=== PATIENT | female | born 1955 | race Caucasian/White ===

== ENCOUNTER 2018-08-15 10:09 | Emergency (ER) | payer OTHER ==
--- OUTSIDE RECORDS SUMMARY | 2018-08-15 10:11 | XMS REPORT | Clinical Summary ---
:1955 Author Organization [facility] Address [address] [place] [address] Care Team Providers Name Role Phone Adonay Maryann Nahed Primary Care Provider Allergies Active Allergy Reactions Severity Noted Date Comments Morphine Itching 06/30/2014 Oxycodone Oow-[id number]-Vps Itching, Nausea And Vomiting 06/30/2014 Diazepam Itching 06/30/2014 Medications Medication Sig Dispensed Refills Start Date End Date Status traMADol (ULTRAM) 50 mg Take 50 mg by 0 Active tablet mouth every 6 (six) hours as needed for Pain. meloxicam (MOBIC) 15 MG Take 15 mg by 0 Active tablet mouth daily. clonazePAM (KLONOPIN) 0.5 Take 0.5 mg by 0 Active MG tablet mouth 2 (two) times daily as needed for Anxiety. cholecalciferol (VITAMIN Take 1,000 0 Active D3) 1,000 unit tablet Units by mouth daily. ascorbic acid (VITAMIN C) Take 1,000 mg 0 Active 1000 MG tablet by mouth daily. b complex vitamins tablet Take 1 tablet 0 Active by mouth daily. magnesium 30 mg tablet Take 30 mg by 0 Active mouth 2 (two) times daily. multivitamin per tablet Take 1 tablet 0 Active by mouth daily. DULoxetine (CYMBALTA) 60 Take 60 mg by 0 Active MG capsule mouth daily. atenolol (TENORMIN) 25 MG Take 25 mg by 0 Active tablet mouth daily. Missing or Non-Formulary 0 Active Medication estrogens, Take 1 tablet 0 Active conjugated,-methyltestost by mouth daily. erone (ESTRATEST) 1.25-2.5 mg per tablet amoxicillin-clavulanate Take 1 tablet 0 Active (AUGMENTIN) 875-125 mg by mouth 2 per tablet (two) times daily. Active Problems Not on file Social History Tobacco Use Types Packs/Day Years Used Date Never Smoker Alcohol Use Drinks/Week oz/Week Comments Yes 1 Glasses of wine 0.6 Sex Assigned at Date Recorded Not on file Job Start Date Occupation Industry Not on file Not on file Not on file Travel History Travel Start Travel End No recent travel history available. Last Filed Vital Signs Not on file Plan of Treatment Not on file Results Not on fileafter 08/14/2017 Insurance Payer Benefit Plan / Subscriber ID Type Phone Address Group [employer]UE [employer] xxxxxxxxxxxxxxx PPO [phone] [address] SHIELD POS/PPO/[place] [address]
--- OUTSIDE RECORDS SUMMARY | 2018-08-15 10:11 | XMS REPORT | Clinical Summary ---
:1955 Author Organization [facility] Address [address] [place] [address] Care Team Providers Name Role Phone Maryann Urias MD Primary Care Provider Allergies Active Allergy Reactions Severity Noted Date Comments Benzodiazepines 06/28/2015 Ciprofloxacin 06/28/2015 Diazepam 03/03/2014 Morphine Itching 06/30/2014 Nitrofurantoin 06/18/2017 Monohyd/M-Cryst Other PERCODAN. Sulfa (Sulfonamide Hives, Other (See 09/14/2015 Flushing and Antibiotics) Comments), lightheadedness Swelling Medications Medication Sig Dispensed Refills Start Date End Date Status clonIDINE (CATAPRES) TK 1 T PO TID 5 06/01/2017 Active 0.1 MG tablet traMADol (ULTRAM) 50 TK 1 T PO 2 05/03/2017 Active mg tablet TID valACYclovir TK 1 T PO TID 0 05/31/2017 Active (VALTREX) 500 MG tablet DULoxetine TK 2 CS PO D 0 06/13/2017 Active (CYMBALTA) 60 MG FOR 90 DAYS capsule propranolol LA TK 1 C PO D 2 05/19/2017 Active (INDERAL LA) 80 MG 24 hr capsule acetaZOLAMIDE 1 05/31/2017 Active (DIAMOX) 250 MG tablet meloxicam (MOBIC) Take 7.5 mg 0 Active 7.5 mg tablet by mouth 2 (two) times a day. cholecalciferol, Take 2,000 0 Active vitamin D3, (VITAMIN Units by D3) 2,000 unit mouth daily. capsule capsule EPINEPHRINE (EPIPEN Inject as 0 Active INJ) directed. cetirizine (ZyrTEC) Take 10 mg by 0 Active 10 MG tablet mouth daily. ranitidine (ZANTAC) Take 150 mg 0 Active 150 MG tablet by mouth 2 (two) times a day. ARIPiprazole Take 5 mg by 0 Active (ABILIFY) 5 MG mouth daily. tablet dicyclomine (BENTYL) Take 10 mg by 0 Active 10 MG capsule mouth 3 (three) times a day. clonAZEPAM 1 06/17/2017 04/15/2018 Discontinued (KlonoPIN) 1 MG tablet aspirin (ECOTRIN) 81 Take 1 tablet 30 tablet 11 06/18/2017 06/18/2018 MG enteric coated (81 mg total) tablet by mouth daily. LORAZepam (ATIVAN) 2 Take 2 mg on 2 tablet 0 03/08/2018 03/09/2018 MG tablet call to MRI scan. If needed repeat another 2 mg for anxiety. 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 Encounters Date Type Specialty Care Team Description 04/30/2018 Orders Only Neurology Shanta Stoner Clinically isolated syndrome (HCC); MA Frequent falls 04/15/2018 Office Visit Neurology Enio Mars MD Lumbar radiculopathy ( Primary Dx); Clinically isolated syndrome (HCC) 04/13/2018 Orders Only Neurology Shanta Stoner Clinically isolated syndrome (HCC); HOLLIS Frequent falls 04/08/2018 Telephone Neurology Shanta Stoner MA 04/06/2018 Hospital Encounter Radiology Enio Mars MD Clinically isolated syndrome (HCC) 04/05/2018 Telephone Neurology Shanta Stoner MA 03/11/2018 Telephone Neurology Shanta Stoner MA 03/09/2018 Transcribe Orders Neurology Shanta Stoner Clinically isolated MA syndrome (HCC) (Primary Dx) 03/08/2018 Office Visit Neurology Enio Mars MD Clinically isolated syndrome (HCC) (Primary Dx); Frequent falls 02/22/2018 Telephone Neurology Shanta Stoner Clinically isolated MA syndrome (HCC) (Primary Dx) 09/11/2017 Office Visit Neurology Enio Mars MD Clinically isolated syndrome (Primary Dx) 09/02/2017 Orders Only Neurology Shanta Stoner Clinically isolated MA syndrome after 08/14/2017 Family History Medical History Relation Name Comments Heart disease Brother Alzheimer's disease Father Diabetes Father Hypertension Father Esophageal cancer Maternal Aunt Lung cancer Maternal Aunt Uterine cancer Maternal Grandmother Lung cancer Mother Melanoma Sister Migraines Sister Relation Name Status Comments Brother Father Maternal Aunt Maternal Grandmother Mother Sister Social History Tobacco Use Types Packs/Day Years Used Date Never Smoker Smokeless Tobacco: Never Used Alcohol Use Drinks/Week oz/Week Comments Yes occl Sex Assigned at Date Recorded Not on file Job Start Date Occupation Industry Not on file Not on file Not on file Travel History Travel Start Travel End No recent travel history available. Last Filed Vital Signs Vital Sign Reading Time Taken Blood Pressure 100/70 04/15/2018 2:13 PM [employer] Pulse 70 04/15/2018 2:13 PM [employer] Temperature 36.9 C (98.4 F) 04/06/2018 10:56 AM [employer] Respiratory Rate 14 04/15/2018 2:13 PM [employer] Oxygen Saturation 95% 04/06/2018 2:15 PM [employer] Inhaled Oxygen Concentration - - Weight - - Height - - Body Mass Index - - Plan of Treatment Health Maintenance Due Date Last Done Comments CERVICAL CANCER SCREENING 1978 BREAST CANCER SCREENING 11/09/2007 COLON CANCER SCREENING 11/09/2007 SHINGLES VACCINES (#1) 11/09/2007 INFLUENZA VACCINE 11/25/2018 03/24/2016, 03/24/2016, 03/16/2015, Additional history exists Procedures Procedure Name Priority Date/Time Associated Comments Diagnosis IR LUMBAR PUNCTURE Routine 04/06/2018 12:25 Clinically isolated Results for this PM [employer] syndrome (HCC) procedure are in the results section. CSF CELL COUNT WITH Routine 04/06/2018 12:10 Clinically isolated Results for this DIFFERENTIAL PM [employer] syndrome (HCC) procedure are in the results section. PROTEIN, CSF Routine 04/06/2018 12:10 Clinically isolated Results for this PM [employer] syndrome (HCC) procedure are in the results section. GLUCOSE LEVEL, CSF Routine 04/06/2018 12:10 Clinically isolated Results for this PM [employer] syndrome (HCC) procedure are in the results section. IGG SYNTHESIS RATE Routine 04/06/2018 12:10 Clinically isolated Results for this STUDY PM [employer] syndrome (HCC) procedure are in the results section. OLIGOCLONAL BANDING, Routine 04/06/2018 12:10 Clinically isolated Results for this CSF PM [employer] syndrome (HCC) procedure are in the results section. GRAM STAIN Routine 04/06/2018 12:10 Results for this PM [employer] procedure are in the results section. CSF CULTURE Routine 04/06/2018 12:10 Clinically isolated Results for this PM [employer] syndrome (HCC) procedure are in the results section. FUNGUS CULTURE Routine 04/06/2018 12:10 Clinically isolated Results for this PM [employer] syndrome (HCC) procedure are in the results section. AFB CULTURE Routine 04/06/2018 12:10 Clinically isolated Results for this PM [employer] syndrome (HCC) procedure are in the results section. CRYPTOCOCCAL ANTIGEN Routine 04/06/2018 12:10 Clinically isolated Results for this SCREEN PM [employer] syndrome (HCC) procedure are in the results section. after 08/14/2017 Results IR Lumbar Puncture by Radiology (04/06/2018 12:25 PM [employer]) Narrative Performed At EXAMINATION:IR LUMBAR PUNCTURE [facility] CLINICAL HISTORY:G37.9 Demyelinating disease of central nervous systemunspecified, clinically isolated syndrome COMPARISON:None. Findings: Informed consent was obtained. Lower back was prepped and draped in usual sterile fashion. 1% lidocaine was used for local anesthesia. A 25-gauge 5 inch needle was advanced into spinal canal at the L2-3 level under intermittent fluoroscopic guidance. 12 cc of clear CSF fluid was withdrawn. No complications. Total fluoroscopic time was less than 1 minute. Total air kerma was 149 mGy. IMPRESSION: Successful fluoroscopic guided lumbar puncture. [facility]-[id number] Procedure Note Hm Interface, Radiology Results Incoming - 04/06/2018 4:39 PM [employer] EXAMINATION: IR LUMBAR PUNCTURE CLINICAL HISTORY: G37.9 Demyelinating disease of central nervous system unspecified, clinically isolated syndrome COMPARISON: None. Findings: Informed consent was obtained. Lower back was prepped and draped in usual sterile fashion. 1% lidocaine was used for local anesthesia. A 25-gauge 5 inch needle was advanced into spinal canal at the L2-3 level under intermittent fluoroscopic guidance. 12 cc of clear CSF fluid was withdrawn. No complications. Total fluoroscopic time was less than 1 minute. Total air kerma was 149 mGy. IMPRESSION: Successful fluoroscopic guided lumbar puncture. [facility]-[id number] Performing Organization Address City/State/Zipcode Phone Number [facility] [address] [place] [address] IgG synthesis rate study (04/06/2018 12:10 PM [employer]) IgG albumin ratio, CSF 0.04 0.00 - 0.23 [facility] IgG index, CSF 0.28 0.01 - 0.63 [facility] IgG synthetic rate -2.69 -9.90 - 3.30 mg/day [facility] Q-albumin ratio, CSF 4.84 2.40 - 8.10 [facility] IgG, CSF 0.82 (L) 1.00 - 3.00 mg/dL [facility] Albumin, CSF 19.34 10.00 - 30.00 mg/dL [facility] IgG 615 (L) 700 - 1,600 mg/dL [facility] Albumin, S 4,000.0 3,640.0 - 5,304.0 mg/dL [facility] Specimen Serum Performing Organization Address City/[facility] Phone Number [facility] DEPARTMENT OF PATHOLOGY AND [address] [place] [id number] [place] [phone] AFB culture (04/06/2018 12:10 PM [employer]) AFB culture isolate No growth after 6 weeks of incubation. [facility] Comment: Specimen Information Specimen Source: CSF (Spinal Fluid) Specimen Site: Lumbar puncture Specimen Cerebrospinal fluid - Lumbar puncture Performing Organization Address [facility] Phone Number [facility] DEPARTMENT OF PATHOLOGY AND [address] [place] [address] Cryptococcal antigen, screen (04/06/2018 12:10 PM [employer]) Cryptococcal Ag Negative - No Cryptococcus antigen detected. [facility] Comment: Specimen Information Specimen Source: CSF (Spinal Fluid) Specimen Site: Lumbar puncture Specimen Cerebrospinal fluid - Lumbar puncture Performing Organization Address City/[facility] Phone Number [facility] DEPARTMENT OF PATHOLOGY AND [address] [place] [phone] [place] [phone] Oligoclonal banding, CSF (04/06/2018 12:10 PM [employer]) Protein, CSF 30 15 - 45 mg/dL [facility] Prealbumin, CSF 4.6 3.5 - 11.1 % [facility] Albumin, CSF 64.8 40.8 - 66.2 % [facility] Alpha 1, CSF 2.7 2.3 - 6.4 % [facility] Alpha 2, CSF 7.3 6.1 - 12.6 % [facility] Beta, CSF 15.2 11.7 - 24.1 % [facility] Gamma, CSF 5.4 (L) 5.6 - 12.2 % [facility] CSF extended interpretation See CommentComment: An [facility] normal CSF [facility] protein study. No oligoclonal bands seen. CSF interpretation See CommentComment: [facility] Mc Bird, PhD; [facility] Nino Gray, PhD; Dre Hartman MD, PhD Specimen Cerebrospinal fluid Performing Organization Address City/[facility] Phone Number [facility] DEPARTMENT OF PATHOLOGY AND [address] [place] [address] Gram stain (04/06/2018 12:10 PM [employer]) Gram stain isolate Few WBC's [facility] No organisms seen Comment: Specimen Information Specimen Source: CSF (Spinal Fluid) Specimen Site: Lumbar puncture Specimen Cerebrospinal fluid - Lumbar puncture Performing Organization Address [facility] Phone Number [facility] DEPARTMENT OF PATHOLOGY AND [address] [place] [phone] [address] CSF culture (04/06/2018 12:10 PM [employer]) CSF culture isolate No growth after 3 days. [facility] Comment: Specimen Information Specimen Source: CSF (Spinal Fluid) Specimen Site: Lumbar puncture Specimen Cerebrospinal fluid - Lumbar puncture Performing Organization Address City/[facility] Phone Number [facility] DEPARTMENT OF PATHOLOGY AND [address] [place], [place] [phone] [address] [address] Fungus culture (04/06/2018 12:10 PM [employer]) Fungus culture isolate No growth after 4 weeks of incubation. [facility] Comment: HOSPITAL Specimen Information Specimen Source: CSF (Spinal Fluid) Specimen Site: Lumbar puncture Specimen Cerebrospinal fluid - Lumbar puncture Performing Organization Address City/[facility] Phone Number [facility] DEPARTMENT OF PATHOLOGY AND [address] [place] [phone] [address] CSF cell count with differential (04/06/2018 12:10 PM [employer]) Color, CSF Chauncey (A) [facility] Appearance, CSF Slightly hazy [facility] CSF supernatant Colorless [facility] RBC, CSF 633 (H) 0 - 1 /CMM [facility] WBC, CSF 3 0 - 5 /CMM [facility] CSF mononuclear cell FootnoteComment: WBC<5,NO [facility] TO PERFORM MANUAL WBC [facility] DIFFERENTIAL. Specimen Cerebrospinal fluid Performing Organization Address City/State/Zipcode Phone Number [facility] DEPARTMENT OF PATHOLOGY [phone] [place] [address] Protein, CSF (04/06/2018 12:10 PM [employer]) Protein, CSF 32 15 - 45 mg/dL [facility] Specimen Cerebrospinal fluid Performing Organization Address City/[facility]/Zipcode Phone Number [facility] DEPARTMENT OF PATHOLOGY [phone] [place] [address] AND [facility] [phone] [place] [address]. [address] Glucose level, CSF (04/06/2018 12:10 PM [employer]) Glucose, CSF 87 (H) 40 - 70 mg/dL [facility] Specimen Cerebrospinal fluid Performing Organization Address City/State/Zipcode Phone Number [facility] DEPARTMENT OF PATHOLOGY [phone] [place] [address] [place] [address] HOSPITAL after 08/14/2017 Insurance Payer Benefit Plan / Group Subscriber ID Type Phone Address [facility] CHOICE/CHOICE + xxxxxxxxx HMO/PPO Advance Directives Patient has advance care planning documents on file. For more information, please contact:[facility] [address] [place] [address]
--- OUTSIDE RECORDS SUMMARY | 2018-08-15 10:11 | XMS REPORT | Continuity of Care Document ---
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5 Solution mg/3 mL (0.083 %) solution for nebulization inhale 3mL over 20 minutes by nebulizer route Clonazepam 1 MG clonazepam 1 mg Active [facility] Oral Tablet tablet TK 1 T PO D Clonidine clonidine HCl Active [facility] Hydrochloride 0.1 mg tablet 0.1 MG Oral TK 1 T PO TID Tablet Dicyclomine dicyclomine 10 Active [facility] Hydrochloride mg capsule TK 1 10 MG Oral C PO TID Capsule duloxetine 60 duloxetine 60 Active [facility] MG Delayed mg Release Oral capsule,delayed Capsule release TK 2 CS PO D FOR 90 DAYS [id number] 0.3 EpiPen 2-Robin Active [facility] ML Epinephrine 0.3 mg/0.3 mL 1 MG/ML injection, Auto-Injector auto-injector [Epipen] USE UTD Lidocaine 0.05 lidocaine 5 % Active [facility] MG/MG Medicated topical patch Patch CHANG 1 PATCH TOPICALLY AND LEAVE ON FOR 12 H THEN LEAVE OFF FOR 12 H meloxicam 7.5 meloxicam 7.5 Active [facility] MG Oral Tablet mg tablet TK 1 T PO BID Estrogens, Premarin 0.625 Active [facility] Conjugated mg/gram vaginal (CUSTODIAL) 0.625 cream APPLY MG/ML Vaginal WITH FINGER TIP Cream TO VAGINAL [Premarin] OPENING TWICE A WEEK UTD 200 ACTUAT ProAir HFA 90 Active [facility] Albuterol 0.09 mcg/actuation MG/ACTUAT aerosol inhaler Metered Dose Inhale 2 puffs Inhaler every 4 hours [ProAir] by inhalation route as needed. 24 HR propranolol ER Active [facility] Propranolol 80 mg Hydrochloride capsule,24 80 MG Extended hr,extended Release Oral release TK 1 C Capsule PO D benzonatate 100 Tessalon Perles Active [facility] MG Oral Capsule 100 mg capsule [Tessalon Take 1-2 Perles] capsules 3 TIMES A DAY by oral route as needed for cough tramadol tramadol 50 mg Active [facility] hydrochloride tablet TK 1 T 50 MG Oral PO TID Tablet valacyclovir valacyclovir Active [facility] 500 MG Oral 500 mg tablet Tablet TK 1 T PO TID 200 ACTUAT albuterol Active [facility] Albuterol 0.09 sulfate HFA 90 MG/ACTUAT mcg/actuation Metered Dose aerosol inhaler Inhaler Inhale 2 puff(s) every 4 hours by inhalation route as needed for 14 days. Atenolol 25 MG atenolol 25 mg Active [facility] Oral Tablet tablet Amoxicillin 875 Augmentin 875 Active [facility] MG / mg-125 mg Clavulanate 125 tablet Take 1 MG Oral Tablet tablet(s) every [Augmentin] 12 hours by oral route with meals for 7 days. Polymyxin B Polytrim 10,000 Active [facility] 39041 UNT/ML / unit-1 mg/mL Trimethoprim 1 eye drops MG/ML INSTILL 1 DROP Ophthalmic INTO both Solution EYE(S) BY [Polytrim] OPHTHALMIC ROUTE EVERY 6 HOURS x 7 days Allergies, Adverse Reactions, Alerts Substance Category Reaction Severity Reaction Status Date Comments Source type Reported Cipro Allergy to [facility] substance 6 Morphine Itching Allergy to [facility] substance 6 Nitrofurantoi Hives Allergy to [facility] n substance 6 Percodan Vomiting Allergy to [facility] substance 6 Sulfa Other Allergy to [facility] (Sulfonamide substance 6 Antibiotics) Valium Allergy to [facility] substance 6 Corticosteroi Allergy to [facility] ds substance 6 (Glucocortico ids) Immunizations Immunization Date Given Site Status Last Updated Comments Source Results Order Results Value Reference Date Interpretation Comments Source Name Range Vital Signs Vital Sign Value Date Comments Source Diastolic (mm Hg) 65 02/17/2017 [facility] Height 65 02/17/2017 [facility] Systolic (mm Hg) 115 02/17/2017 [facility] Weight 232 02/17/2017 [facility] Diastolic (mm Hg) 70 10/11/2015 [facility] Height 65 10/11/2015 [facility] Systolic (mm Hg) 118 10/11/2015 [facility] Weight 225 10/11/2015 [facility] Encounters Location Location Encounter Encounter Reason Attending ADM DC Status Source Details Type Number For Provider Date Date Visit [place] - Diane [id number] Diane 10/10 [facility] Percy [id number] Percy /2015 - [employer]: 9710 [id number] [id number] [facility]/[address] [address] , Ph. [place] - Marya [id number] Marya 02/17 [facility] [id number] Long - PA-C: 9710 [id number] [place] [id number] [facility]/[address] [address] , Ph. Procedures Procedure Code Date Perfomer Comments Source Cholecystectomy [facility] Hysterectomy [facility] Tonsillectomy [facility]
--- OUTSIDE RECORDS SUMMARY | 2018-08-15 10:12 | XMS REPORT | Encounter Summary ---
:1955 Author Reason for Visit Medical Complaint; fever, body aches, sore throat, cough, ear pain, problem w/ swollen eyes x 7 days Instructions 1. Acute sinusitis Augmentin 875 mg-125 mg tablet 2. Bronchitis albuterol sulfate HFA 90 mcg/actuation aerosol inhaler 3. Conjunctivitis Polytrim 10,000 unit-1 mg/mL eye drops Discussion Note: None recorded.Patient educational handouts: No information available. Plan of Care Reminders Provider Appointments None recorded. Lab None recorded. Referral None recorded. Procedures None recorded. Surgeries None recorded. Imaging None recorded. Medications Name Start Date albuterol sulfate HFA 90 mcg/actuation aerosol inhaler Inhale 2 puff(s) every 4 hours by inhalation route as needed for 14 days. atenolol 25 mg tablet Augmentin 875 mg-125 mg tablet Take 1 tablet(s) every 12 hours by oral route with meals for 7 days. clonazepam 1 mg tablet clonidine HCl 0.1 mg tablet duloxetine 60 mg capsule,delayed release lidocaine 5 % topical patch meloxicam 7.5 mg tablet Polytrim 10,000 unit-1 mg/mL eye drops INSTILL 1 DROP INTO both EYE(S) BY OPHTHALMIC ROUTE EVERY 6 HOURS x 7 days Premarin 0.625 mg/gram vaginal cream APPLY WITH FINGER TIP TO VAGINAL OPENING TWICE A WEEK UTD tramadol 50 mg tablet Medications Administered None recorded. Vitals Height Weight BMI Blood Pressure 5 ft 5 in 225 lbs 37.4 118/70 Lab Results None recorded. Allergies Name Reaction Severity Onset Cipro Corticosteroids (Glucocorticoids) Morphine Itching Nitrofurantoin Hives Percodan Vomiting Sulfa (Sulfonamide Antibiotics) Other Valium Problems Name Status Onset Date Source Conjunctivitis Active Encounter Acute Sinusitis Active Encounter Bronchitis Active Encounter Procedures Date Name Performed by Cholecystectomy Information not available Hysterectomy Information not available Tonsillectomy Information not available Vaccine List None recorded. Social History Smoking Status Never Smoker Past Encounters 10/11/2015 Acute Sinusitis; Bronchitis; Conjunctivitis DENNYS Headley: [address] [place] [address], Ph. [phone] History of Present Illness Thuud-Ifcbqwkzhs-Rueqpru Reported By: Patient HPI: Location: head/sinuses, throat, chest. Quality: productive cough, sore throat, colored phlegm, nasal/sinus congestion. Duration: 7days. Severity: moderate. Onset/Timing: gradual. Context: no foreign travel, non-smoker, sick contact, allergies. Modifying factors: OTC medication. Associated Symptoms: no change in number of pillows needed to sleep at night, no sweats, no significant weight gain, no significant weight loss, no morning cough, no vomiting, no diarrhea, no rash, green sputum, shortness of breath, wheezing, fatigue, sweats, sore throat, nausea Review of Systems Basic Reported By: Patient Constitutional: Constitutional: fever Eyes: Eyes: ; bilateral eye redness, matted/crusted AM drainage, mucus/watery discharge Jpsr-Nmgi-Nvord-Throat: Ears: ear pain. Nose: nose/sinus problems. Mouth/ Throat: no bleeding gums, no mouth complaints, no teeth problems, sore throat Cardiovascular: Cardiovascular: no chest pain, no known heart murmur Respiratory: Respiratory: cough, wheezing, shortness of breath Gastrointestinal: Gastrointestinal: no abdominal pain, no vomiting / diarrhea Genitourinary: Genitourinary: no urinary complaints, no discharge Musculoskeletal: Musculoskeletal: no muscle weakness, no arthralgias/joint pain, no back pain, muscle aches Skin: Skin: no abnormal / changing mole, no jaundice, no rashes Neurologic: Neurologic: no loss of consciousness, no weakness, no numbness, no seizures, dizziness, headache Physical Exam Adult Basic, Adult Female Complete Constitutional: General Appearance: healthy-appearing, well-nourished, well-developed. Level of Distress: NAD. Ambulation: ambulating normally Psychiatric: Mental Status: active and alert. Orientation: to time, to place, to person Eyes: Lids and Conjunctivae: no pallor, injected, discharge. Pupils: PERRLA. Sclerae: injected Apj-Gsbw-Bykvh-Throat: Ears: no lesions on external ear, no outer ear tenderness, EACs clear, TMs clear. Hearing: no hearing loss. Nose: no lesions on external nose, no septal deviation, nasal passages clear, no nasal discharge, sinus tenderness; turbinates swollen. Lips, Teeth, and Gums: no mouth or lip ulcers, no bleeding gums, normal dentition. Oropharynx: moist mucous membranes, no erythema, no exudates, tonsils not enlarged Neck: Lymph Nodes: anterior cervical LAD Lungs: Respiratory effort: no dyspnea, no tachypnea, no use of accessory muscles. Auscultation: breath sounds normal Cardiovascular: Heart Auscultation: RRR Neurologic: Gait and Station: normal gait
--- OUTSIDE RECORDS SUMMARY | 2018-08-15 10:12 | XMS REPORT ---
:1955 [facility] Address [address] [place] [address] [place] [id number] Care Team Providers Name Role Phone DR LOUIS MALIK Unavailable Unavailable DIAMOND ELY Unavailable Unavailable Problems This patient has no known problems. Allergies, Adverse Reactions, Alerts This patient has no known allergies or adverse reactions. Medications This patient has no known medications. Encounters Start End Encounter Admission Attending Care Care Encounter Date/Time Date/Time Type Type Clinicians Facility Department ID 2017-10-22 2017-10-22 Outpatient Destinee MALIK Destinee [facility] [id number] 07:07:00 11:00:00 [facility] 2017-09-29 2017-09-29 Outpatient C HELENA Destinee RAD [id number] 09:46:00 23:59:00 [facility] Results Test Description Test Time Test Comments Text Results Atomic Results Result Comments MRI LOW EXT JOINT W/O 2017-09-29 13:00:16 Site ID: [id number] left knee without IV CONTRAST*HSE* contrastHISTORY: M25.562COMPARISON: NoneTECHNIQUE: Multiplanar, multisequence MRI of the left knee was performedwithout contrast.FINDINGS: Menisci: Nondisplaced horizontal tear extends to the free margin of theresidual posterior horn medial meniscus, there is significant truncationthroughout the free margin of the body and posterior horn medial meniscus, withperipheral extrusion of the body segment. Nondisplaced oblique horizontalundersurface tear involves the posterior horn lateral meniscus.Cruciate ligaments: Intact. Collateral ligaments: The medial and lateral collateral ligament complexes areintact.Osseous structures and articular cartilage: No fracture or marrow replacinglesion. Full-thickness medial compartment chondromalacia, with subchondralremodeling and marginal osteophytosis.Patellofemoral joint: Steep lateral trochlear facet with minimal static lateralpatellar tilt and resultant grade II/III chondromalacia throughout the lateralpatellofemoral articulation. No retinacular tear demonstrated. Extensormechanism is normal.Miscellaneous: Small joint effusion, with mild synovitis. No loose bodydemonstrated. Popliteus tendon appears intact. No muscle edema or atrophy.IMPRESSION:1. Prominent free margin truncation throughout the body and posterior hornmedial meniscus with peripheral extrusion of the body segment. Nondisplacedhorizontal tear of the residual posterior horn.2. Moderate medial compartment osteoarthritis/osteophytosis.3. Small nondisplaced oblique horizontal undersurface tear posterior hornlateral meniscus. Mild lateral compartment osteophytosis.4. 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 Small joint effusion. MRI LOW EXT JOINT W/O 2017-09-29 12:52:08 Site ID: [id number] right knee without IV CONTRAST*HSE* contrastHISTORY: M25.561COMPARISON: NoneTECHNIQUE: Multiplanar, multisequence MRI of the right knee was performedwithout contrast.FINDINGS: Menisci: Potentially, there is been prior free margin debridement throughoutthe posterior horn medial meniscus, which appears diffusely attenuated. Mildresidual free margin irregularity is present. Lateral meniscus appears normal.Cruciate ligaments: Intact. Collateral ligaments: The medial and lateral collateral ligament complexes areintact.Osseous structures and articular cartilage: No fracture or marrow replacinglesion. Full-thickness medial compartment chondromalacia, with subchondralremodeling and marginal osteophytosis.Patellofemoral joint: Steep lateral trochlear facet with minimal static lateralpatellar tilt and mild patellofemoral chondromalacia. No retinacular teardemonstrated. Extensor mechanism is normal.Miscellaneous: Small joint effusion, with mild synovitis and thin poplitealcyst. No loose body demonstrated. Popliteus tendon appears intact. No muscleedema or atrophy.IMPRESSION:1. Probable previous free margin debridement of the posterior horn medialmeniscus, with mild residual free margin irregularity.2. Fairly isolated moderate medial compartment osteoarthritis/osteophytosis.3. Small joint effusion. B-TYPE NATRIURETIC FACTOR (BNP) 2016-07-07 14:13:00 Test Item Value Reference Range Comments B-TYPE NATRIURETIC PEPTIDE (BEAKER) (test fclq=256) 30 pg/mL 0-100
--- OUTSIDE RECORDS SUMMARY | 2018-08-15 10:12 | XMS REPORT | Encounter Summary ---
:1955 Author Reason for Visit Medical Complaint Instructions 1. Costal chondritis costochondritis: care instructions albuterol sulfate 2.5 mg/3 mL (0.083 %) solution for nebulization Tessalon Perles 100 mg capsule ProAir HFA 90 mcg/actuation aerosol inhaler 2. Cough cough: care instructions 3. Wheezing symptom wheezing or bronchoconstriction: care instructions Discussion Note take charge of your health provided to pt with education and questions answered Plan of Care Patient Instructions FU with PCP if symptoms worsening or not improving. Reminders Provider Appointments None recorded. Lab None recorded. Referral None recorded. Procedures None recorded. Surgeries None recorded. Imaging None recorded. Medications Name Start Date acetazolamide 250 mg tablet TK 1 T PO QD albuterol sulfate 2.5 mg/3 mL (0.083 %) solution for nebulization inhale 3mL over 20 minutes by nebulizer route clonazepam 1 mg tablet TK 1 T PO D clonidine HCl 0.1 mg tablet TK 1 T PO TID dicyclomine 10 mg capsule TK 1 C PO TID duloxetine 60 mg capsule,delayed release TK 2 CS PO D FOR 90 DAYS EpiPen 2-Robin 0.3 mg/0.3 mL injection, auto-injector USE UTD lidocaine 5 % topical patch CHANG 1 PATCH TOPICALLY AND LEAVE ON FOR 12 H THEN LEAVE OFF FOR 12 H meloxicam 7.5 mg tablet TK 1 T PO BID Premarin 0.625 mg/gram vaginal cream APPLY WITH FINGER TIP TO VAGINAL OPENING TWICE A WEEK UTD ProAir HFA 90 mcg/actuation aerosol inhaler Inhale 2 puffs every 4 hours by inhalation route as needed. propranolol ER 80 mg capsule,24 hr,extended release TK 1 C PO D Tessalon Perles 100 mg capsule Take 1-2 capsules 3 TIMES A DAY by oral route as needed for cough tramadol 50 mg tablet TK 1 T PO TID valacyclovir 500 mg tablet TK 1 T PO TID Medications Administered Name Date albuterol sulfate 2.5 mg/3 mL (0.083 %) solution for nebulization 2017 -10-24T16:20:29 inhale 3mL over 20 minutes by nebulizer route Vitals Height Weight BMI Blood Pressure 5 ft 5 in 232 lbs 38.6 kg/m2 115/65 mm[Hg] Lab Results None recorded. Allergies Code Code System Name Reaction Severity Status Onset 20340927 RxNorm Cipro Active Corticosteroids Active (Glucocorticoids) 7052 RxNorm Morphine Itching Active 7454 RxNorm Nitrofurantoin Hives Active 273497 RxNorm Percodan Vomiting Active Sulfa (Sulfonamide Other Active Antibiotics) 20231027 RxNorm Valium Active Problems Name Status Onset Date Source Conjunctivitis Active Encounter Acute Sinusitis Active Encounter Bronchitis Active Encounter Procedures Date Name Performed by Cholecystectomy Information not available Hysterectomy Information not available Tonsillectomy Information not available Vaccine List None recorded. Social History Smoking Status Never Smoker Past Encounters 02/17/2017 Costal Chondritis; Cough; Wheezing Symptom DESHAWN McintoshC: [address] [place] [address], Ph. History of Present Illness Wheezing / Cough Reported By: Patient HPI: Location: chest. Quality: dyspnea, tightness, wheezy cough, wheezing. Severity: worsening. Duration: symptoms lasting over 2 weeks. Context: no foreign travel, non-smoker, sick contact, worse at night, allergies, hx of asthma; sleep apnea with no treatment. Modifying factors: OTC medication. Associated Symptoms: no fever, no chills, no sweats, no edema, no heartburn, no sputum production, no shortness of breath, no significant weight gain, no significant weight loss, no morning cough, no post nasal drip, no nausea, no vomiting, no diarrhea, no rash, no muscle aches, no headache, chest pain, wheezing, sore throat Review of Systems Basic Reported By: Patient Constitutional: Constitutional: no fever Eyes: Eyes: no eye complaints Qibb-Jotl-Idpif-Throat: Ears: no ear complaints. Nose: no nose/sinus problems. Mouth/Throat: no bleeding gums, no mouth complaints, no teeth problems, sore throat Cardiovascular: Cardiovascular: no chest pain, no shortness of breath, no known heart murmur Respiratory: Respiratory: cough, wheezing, shortness of breath Musculoskeletal: Musculoskeletal: no muscle weakness, no arthralgias/joint pain, no back pain, muscle aches Neurologic: Neurologic: no loss of consciousness, no weakness, no numbness, no seizures, no dizziness, no headaches, headache Physical Exam Adult Basic Reported By: Patient Constitutional: General Appearance: healthy-appearing, well-nourished, well-developed. Level of Distress: NAD. Ambulation: ambulating normally Psychiatric: Mental Status: active and alert. Orientation: to time, to place, to person Xvy-Qnzd-Sntjs-Throat: Ears: no lesions on external ear, no outer ear tenderness, EACs clear, TMs clear. Hearing: no hearing loss. Nose: no lesions on external nose, nares patent, no septal deviation, nasal passages clear, no sinus tenderness, no nasal discharge. Lips, Teeth, and Gums: no mouth or lip ulcers, no bleeding gums, normal dentition. Oropharynx: moist mucous membranes, no erythema, no exudates, tonsils not enlarged Neck: Neck: supple, trachea midline, no masses, FROM. Lymph Nodes: no cervical LAD, no supraclavicular LAD Lungs: Respiratory effort: no dyspnea, no tachypnea, no use of accessory muscles, no intercostal retractions; very shallowing breathing on exam with coughing. Auscultation: breath sounds normal Cardiovascular: Heart Auscultation: RRR, no murmurs
[2018-08-15] MEDS ORDERED: HYDROCODONE/APAP 10/325 TAB ONE (11:11)
[2018-08-15] MEDS ORDERED: KETOROLAC 30 MG/ML INJ ONE (11:11)
--- NOTE | 2018-08-15 11:30 | ER ---
Nurse's Notes [facility] Name: Ale Patel Age: 62 yrs Sex: Female : 1955 Arrival Date: 08/15/2018 Time: 10:12 Bed 6 Private MD: Diagnosis: Fall due to bumping against object;Contusion of left hip;Contusion of hip;Urinary tract infection, site not specified Presentation: 08/15 10:26 Presenting complaint: Patient states: tripped and fell going up about 4 stairs, denies sv LOC, c/o buttock pain, left hip and LLE pain. Care prior to arrival: None. 10:26 Method Of Arrival: Wheelchair sv 10:26 Acuity: [facility] 3 sv 10:27 Transition of care: patient was not received from another setting of care. Onset of sv symptoms was August 15, 2018 at 06:00. 12:21 Initial Sepsis Screen: Does the patient meet any 2 criteria? No. Patient's initial aj1 sepsis screen is negative. Does the patient have a suspected source of infection? No. Patient's initial sepsis screen is negative. 12:22 Risk Assessment: Do you want to hurt yourself or someone else? Patient reports no aj1 desire to harm self or others. Trauma Activation: Not Applicable Physician: ED Physician; Name: ; Notified At: ; Arrived At: Physician: General Surgeon; Name: ; Notified At: ; Arrived At: Physician: Radiology; Name: ; Notified At: ; Arrived At: Physician: Respiratory; Name: ; Notified At: ; Arrived At: Physician: Lab; Name: ; Notified At: ; Arrived At: Historical: - Allergies: 10:29 Percodan; sv 10:29 BENZODIAZEPINES; sv 10:29 Morphine; sv - PMHx: 10:29 postural tachycardia; Carolina Mera; Ehler's danlos syndrome; IBS; psoriatic arthritis; sv spondylosis; - Immunization history:: Adult Immunizations up to date. - Family history:: not pertinent. - Ebola Screening: : No symptoms or risks identified at this time. Screenin:37 Abuse screen: Denies threats or abuse. Denies injuries from another. Nutritional aj1 screening: No deficits noted. Tuberculosis screening: No symptoms or risk factors identified. 12:22 Fall Risk Fall in past 12 months (25 points). Secondary diagnosis (15 points) impaired aj1 mobility, No IV (0 pts). Ambulatory Aid- Crutches/Cane/Walker (15 pts). Gait- Impaired (20 pts.). Mental Status- Oriented to own ability (0 pts). Total Chavez Fall Scale indicates High Risk Score (45 or more points). Family Present and informed to notify staff if the need to leave the bedside. Assessment: 10:37 General: Appears in no apparent distress. uncomfortable, Behavior is calm, cooperative, aj1 appropriate for age. Pain: Complains of pain in left hip and left gluteus salty and left lower back Pain radiates to left leg. Neuro: Level of Consciousness is awake, alert, obeys commands, Oriented to person, place, time, situation. Cardiovascular: Patient's skin is warm and dry. Respiratory: Airway is patent Respiratory effort is even, unlabored, Respiratory pattern is regular, symmetrical. GI: No signs and/or symptoms were reported involving the gastrointestinal system. : No signs and/or symptoms were reported regarding the genitourinary system. EENT: No signs and/or symptoms were reported regarding the EENT system. Derm: No signs and/or symptoms reported regarding the dermatologic system. Skin is pink, warm \T\ dry. normal. Musculoskeletal: Range of motion: limited in left hip. 11:30 Reassessment: Patient appears in no apparent distress at this time. No changes from aj1 previously documented assessment. Patient and/or family updated on plan of care and expected duration. Pain level reassessed. Patient is alert, oriented x 3, equal unlabored respirations, skin warm/dry/pink. Vital Signs: 10:29 BP 111 / 65; Pulse 76; Resp 18; Temp 97.3; Pulse Ox 96% ; Weight 106.59 kg; Height 5 sv ft. 5 in. (165.10 cm); Pain 8/10; 10:29 Body Mass Index 39.11 (106.59 kg, 165.10 cm) sv ED Course: 10:12 Patient arrived in ED. as 10:27 Triage completed. sv 10:29 Dave Amin MD is Attending Physician. jessica 10:29 Arm band placed on. sv 10:35 Mariah Diehl RN is Primary Nurse. aj1 10:37 Patient has correct armband on for positive identification. aj1 10:37 No provider procedures requiring assistance completed. aj1 11:29 Hao Helms MD is Referral Physician. [facility] 12:03 Lumbar Spine (3 Views) XRAY In Process Unspecified. EDMS 12:03 Pelvis XRAY In Process Unspecified. EDMS 12:03 Hip Left 2 View XRAY In Process Unspecified. EDMS 12:21 Patient did not have IV access during this emergency room visit. aj1 Administered Medications: 11:16 Drug: TORadol 60 mg Route: IM; Site: left deltoid; ph 11:49 Follow up: Response: No adverse reaction aj1 11:16 Drug: [place] 10 mg-325 mg 1 tabs Route: PO; ph 11:50 Follow up: Response: No adverse reaction aj1 12:20 Drug: Bactrim (160 mg-800 mg (DS) 1 tablet Route: PO; aj1 12:20 Follow up: Response: No adverse reaction aj1 Outcome: 11:29 Discharge ordered by MD. [facility] 12:23 Discharged to home via wheelchair, with family. aj1 12:23 Condition: good 12:23 Discharge instructions given to patient, family, Instructed on discharge instructions, follow up and referral plans. medication usage, Demonstrated understanding of instructions, follow-up care, medications, Prescriptions given X 2. 12:23 Patient left the ED. aj1 Signatures: Dispatcher [employer] Mariah Diana RN RN aj1 Anna Adams RN RN sv Dave Amin MD MD cha Martinez, Amelia as Maryann Brooks RN RN ph Corrections: (The following items were deleted from the chart) 10: 10:26 Presenting complaint: Patient states: tripped and fell going up about 4 stairs, sv denies LOC, c/o buttock pain and LLE pain. sv 10:30 10:26 Acuity: [facility] 4 sv sv
--- NOTE | 2018-08-15 11:30 | EDPHYS ---
Physician Documentation [facility] Name: Ale Patel Age: 62 yrs Sex: Female : 1955 Arrival Date: 08/15/2018 Time: 10:12 Bed 6 Private MD: ED Physician Dave Amin HPI: 08/15 10:35 This 62 yrs old Female presents to ER via Wheelchair with complaints of Fall jessica Injury. 10:35 Details of fall: The patient fell from an upright position, while walking. Onset: The jessica symptoms/episode began/occurred just prior to arrival. Associated injuries: The patient sustained injury to the low back, left lower back and left gluteus salty, decreased range of motion. Severity of symptoms: At their worst the symptoms were mild, in the emergency department the symptoms are unchanged. The patient has not experienced similar symptoms in the past. Historical: - Allergies: 10:29 Percodan; sv 10:29 BENZODIAZEPINES; sv 10:29 Morphine; sv - PMHx: 10:29 postural tachycardia; Carolina Mera; Ehler's danlos syndrome; IBS; psoriatic arthritis; sv spondylosis; - Immunization history:: Adult Immunizations up to date. - Family history:: not pertinent. - Ebola Screening: : No symptoms or risks identified at this time. ROS: 10:35 Constitutional: Negative for fever, chills, and weight loss, Eyes: Negative for injury, jessica pain, redness, and discharge, ENT: Negative for injury, pain, and discharge, Neck: Negative for injury, pain, and swelling, Cardiovascular: Negative for chest pain, palpitations, and edema, Respiratory: Negative for shortness of breath, cough, wheezing, and pleuritic chest pain, Abdomen/GI: Negative for abdominal pain, nausea, vomiting, diarrhea, and constipation, Back: Negative for injury and pain, : Negative for injury, bleeding, discharge, and swelling, Skin: Negative for injury, rash, and discoloration, Neuro: Negative for headache, weakness, numbness, tingling, and seizure, Psych: Negative for depression, anxiety, suicide ideation, homicidal ideation, and hallucinations, Allergy/Immunology: Negative for hives, rash, and allergies, Endocrine: Negative for neck swelling, polydipsia, polyuria, polyphagia, and marked weight changes, Hematologic/Lymphatic: Negative for swollen nodes, abnormal bleeding, and unusual bruising. 10:35 MS/extremity: Positive for decreased range of motion, pain, tenderness, of the left lower back and left gluteus salty. Exam: 10:35 Constitutional: This is a well developed, well nourished patient who is awake, alert, jessica and in no acute distress. Head/Face: Normocephalic, atraumatic. Eyes: Pupils equal round and reactive to light, extra-ocular motions intact. Lids and lashes normal. Conjunctiva and sclera are non-icteric and not injected. Cornea within normal limits. Periorbital areas with no swelling, redness, or edema. ENT: Nares patent. No nasal discharge, no septal abnormalities noted. Tympanic membranes are normal and external auditory canals are clear. Oropharynx with no redness, swelling, or masses, exudates, or evidence of obstruction, uvula midline. Mucous membranes moist. Neck: Trachea midline, no thyromegaly or masses palpated, and no cervical lymphadenopathy. Supple, full range of motion without nuchal rigidity, or vertebral point tenderness. No Meningismus. Chest/axilla: Normal chest wall appearance and motion. Nontender with no deformity. No lesions are appreciated. Cardiovascular: Regular rate and rhythm with a normal S1 and S2. No gallops, murmurs, or rubs. Normal PMI, no JVD. No pulse deficits. Respiratory: Lungs have equal breath sounds bilaterally, clear to auscultation and percussion. No rales, rhonchi or wheezes noted. No increased work of breathing, no retractions or nasal flaring. Abdomen/GI: Soft, non-tender, with normal bowel sounds. No distension or tympany. No guarding or rebound. No evidence of tenderness throughout. Female : Normal external genitalia. MS/ Extremity: Pulses equal, no cyanosis. Neurovascular intact. Full, normal range of motion. Neuro: Awake and alert, GCS 15, oriented to person, place, time, and situation. Cranial nerves II-XII grossly intact. Motor strength 5/5 in all extremities. Sensory grossly intact. Cerebellar exam normal. Normal gait. Psych: Awake, alert, with orientation to person, place and time. Behavior, mood, and affect are within normal limits. 10:35 Back: pain, that is mild, ROM is normal, normal spinal alignment noted, CVA tenderness, is absent, vertebral tenderness, is not appreciated. 10:35 Musculoskeletal/extremity: Extremities: noted in the left gluteus salty: decreased ROM, pain, Circulation is intact in all extremities. Sensation intact. Compartment Syndrome exam of affected extremity: is normal. DVT Exam: no swelling, negative Homans' sign noted on exam, no appreciated bluish discoloration, no erythema, no increased warmth, pain, tenderness. Vital Signs: 10:29 BP 111 / 65; Pulse 76; Resp 18; Temp 97.3; Pulse Ox 96% ; Weight 106.59 kg; Height 5 sv ft. 5 in. (165.10 cm); Pain 8; 10:29 Body Mass Index 39.11 (106.59 kg, 165.10 cm) sv MDM: 10:29 Patient medically screened. [facility] 10:38 Data reviewed: vital signs, nurses notes, lab test result(s), radiologic studies, plain [facility] films. 08/15 12:19 Order name: Urine Dipstick--Ancillary (enter results) 08/15 10:35 Order name: Lumbar Spine (3 Views) XRAY [facility] 08/15 10:35 Order name: Pelvis XRAY [facility] 08/15 10:35 Order name: Hip Left 2 View XRAY [facility] 08/15 10:35 Order name: Urine Dipstick-Ancillary (obtain specimen); Complete Time: 11:49 [facility] Administered Medications: 11:16 Drug: TORadol 60 mg Route: IM; Site: left deltoid; ph 11:49 Follow up: Response: No adverse reaction aj1 11:16 Drug: Weston 10 mg-325 mg 1 tabs Route: PO; ph 11:50 Follow up: Response: No adverse reaction aj1 12:20 Drug: Bactrim (160 mg-800 mg (DS) 1 tablet Route: PO; aj1 12:20 Follow up: Response: No adverse reaction aj1 Disposition: 08/15/18 11:29 Discharged to Home. Impression: Fall due to bumping against object, Contusion of left hip, Contusion of hip, Urinary tract infection, site not specified. - Condition is Stable. - Discharge Instructions: Contusion, Urinary Tract Infection, Adult, Urinary Tract Infection, Adult, [id number], Contusion, [id number], Fall Prevention in the Home, [id number]. - Prescriptions for Tramadol 50 mg Oral Tablet - take 2 tablet by ORAL route every 8 hours as needed; 30 tablet. Bactrim DS 800- 160 mg Oral Tablet - take 1 tablet by ORAL route every 12 hours for 7 days; 14 tablet. - Medication Reconciliation Form, Thank You Letter, Antibiotic Education, Prescription Opioid Use form. - Follow up: Private Physician; When: 2 - 3 days; Reason: Recheck today's complaints, Continuance of care, Re-evaluation by your physician. Follow up: Hao Helms MD; When: 2 - 3 days; Reason: Recheck today's complaints, Continuance of care, Re-evaluation by your physician. - Problem is new. - Symptoms have improved. Signatures: Dispatcher [employer] EDMS Mariah Diehl RN RN aj1 Anna Adams RN RN Dave Amin MD MD cha Hall, Patricia, RN RN ph Corrections: (The following items were deleted from the chart) 12:00 11:29 08/15/2018 11:29 Discharged to Home. Impression: Fall due to bumping against jessica object; Contusion of left hip; Contusion of hip. Condition is Stable. Discharge Instructions: Contusion, Contusion, [id number], Fall Prevention in the Home, [id number]. Prescriptions for Tramadol 50 mg Oral Tablet - take 2 tablet by ORAL route every 8 hours as needed; 30 tablet. and Forms are Medication Reconciliation Form, Thank You Letter, Antibiotic Education, Prescription Opioid Use. Follow up: Private Physician; When: 2 - 3 days; Reason: Recheck today's complaints, Continuance of care, Re-evaluation by your physician. Follow up: Hao Helms; When: 2 - 3 days; Reason: Recheck today's complaints, Continuance of care, Re-evaluation by your physician. Problem is new. Symptoms have improved. [facility] 12:23 12:00 08/15/2018 11:29 Discharged to Home. Impression: Fall due to bumping against aj1 object; Contusion of left hip; Contusion of hip; Urinary tract infection, site not specified. Condition is Stable. Discharge Instructions: Contusion, Contusion, [id number], Fall Prevention in the Home, [id number]-[id number]. Prescriptions for Tramadol 50 mg Oral Tablet - take 2 tablet by ORAL route every 8 hours as needed; 30 tablet. and Forms are Medication Reconciliation Form, Thank You Letter, Antibiotic Education, Prescription Opioid Use. Follow up: Private Physician; When: 2 - 3 days; Reason: Recheck today's complaints, Continuance of care, Re-evaluation by your physician. Follow up: Hao Helms; When: 2 - 3 days; Reason: Recheck today's complaints, Continuance of care, Re-evaluation by your physician. Problem is new. Symptoms have improved. jessica
[2018-08-15] MEDS ORDERED: SMZ./TMP. 800/160 MG TABLET ONE (12:25)
--- NOTE | 2018-08-15 12:25 | RAD REPORT ---
EXAM DESCRIPTION: RAD - Pelvis - 08/15/2018 12:02 pm CLINICAL HISTORY: Pelvic pain status post injury FINDINGS: No fracture or dislocation is seen. If the patient continues to have symptoms to suggest an occult fracture then MRI would be recommended
--- NOTE | 2018-08-15 12:25 | RAD REPORT ---
EXAM DESCRIPTION: RAD - Lumbar Spine 3 Views - 08/15/2018 12:02 pm CLINICAL HISTORY: Back pain FINDINGS: Posterior fusion involves L4 through S1 with pedicular screws united by rods and bone plug s. Alignment of the lumbar spine is satisfactory. No fracture or dislocation noted.
--- NOTE | 2018-08-15 12:27 | RAD REPORT ---
EXAM DESCRIPTION: RAD - Hip Left 2 View - 08/15/2018 12:02 pm CLINICAL HISTORY: Left hip pain status post injury FINDINGS: No fracture or dislocation is seen. If the patient continues to have symptoms to suggest an occult fracture then MRI would be recommended
[2018-08-15 13:07] LABS: Urine Blood NEGATIVE (NEG); Urine Glucose NEGATIVE (NEG); Urine Protein NEGATIVE (NEG); Urine Specific Gravity 1.025 (1.005-1.030); Urine pH 6.5 (5.0-7.0)
== END 2018-08-15 12:23 | disposition home or self-care (01) ==
LOC: ER 10:09
DX: S70.02XA Contusion of left hip, initial encounter (principal); W18.00XA Striking against unspecified object with subsequent fall, initial encounter; Y93.01 Activity, walking, marching and hiking; N39.0 Urinary tract infection, site not specified; Q79.6 Ehlers-Danlos syndromes; K58.9 Irritable bowel syndrome, unspecified; Z88.5 Allergy status to narcotic agent; Z88.8 Allergy status to other drugs, medicaments and biological substances
CPT/HCPCS: 72100; 72170; 81003; 96372; 99283